=== PATIENT | female | born 1980 | race Caucasian/White ===

== ENCOUNTER 2016-12-17 16:32 | Emergency (ER) | payer MEDICARE ==
--- NOTE | ~2016-12-17 | EKG ---
PATIENT: MILO PEREYRA UNIT #: [id number] Ventricular Rate: 104 BPM Atrial Rate: 104 BPM P-R Interval: 150 ms QRS Duration: 82 ms Q-T Interval: 358 ms QTC Calculation(Bezet): 470 ms P [place]: 42 degrees Calculated R [place]: 13 degrees Calculated T [place]: 38 degrees Diagnosis Line: Sinus tachycardia Diagnosis Line: Otherwise normal ECG Diagnosis Line: No previous ECGs available Diagnosis Line: Confirmed by IRVING LAMBERT MD ([id number]) on 12/18/2016 Diagnosis Line: 8:05:17 PM INTERPRETING MD: PETRA CHRISTIE
[~2016-12-17 16:32] MED LIST: ACYCLOVIR PO; ALPRAZOLAM PO; BACITRACIN30 GM TOP; CARAFATE1 G; DICLOFENAC PO; EC-NAPROSYN500 MG PO; ERY-TAB500 MG PO; FLEXERIL PO; FLEXERIL10 MG PO; HYDROCODONE-APA1 T58 PO; IBUPROFEN PO; KETOPROFEN PO; KLONOPIN PO; KLONOPIN1 MG PO; LORTAB 10-5001 EACH PO; MOBIC PO; MOUTHWASH180 ML PO; NABUMETONE PO; NAPROSYN500 MG PO; OMEPRAZOLE20 M2 PO; PHENERGAN PO; PREDNISONE PO; PREVACID PO; PRILOSEC PO; SEROQUEL XR300 MG PO; SEROQUEL XR50 MG PO; SEROQUEL300 M1 PO; SEROQUEL50 M1 PO; SEROQUEL50 MG PO; SINGULAIR PO; SYMBICORT 160/4.6 GM; TOPAMAX PO; TRAZODONE PO; ULTRAM PO; VICODIN 5/500 T1 TAB PO; ZANAFLEX PO; ZANAFLEX4 M1 PO; ZANTAC PO; ZITHROMAX PO; ZOVIRAX CREAM TOP; ZYRTEC PO
[2016-12-17] MEDS ORDERED: ANTIDEPRESSANT (16:42)
[2016-12-17 17:15] LABS: BASOPHIL% 0.4 % (0-2.5); EOSINOPHIL% 0.1 % (0.0-7.0); HEMOGLOBIN 12.7 gm/dL (12.0-16.0); LYMPHOCYTE# 1.4 X10e3 (1.0-3.5); LYMPHOCYTE% 11.5 % (17.0-45.0); MEAN CELL VOLUME 91.2 FL (83-96); MEAN CORPUSCULAR HEMOGLOBIN 30.4 PG (28-34); MEAN CORPUSCULAR HGB CONC 33.4 g/dL (30-36); MEAN PLATELET VOLUME 7.8 FL (6.5-11.5); MONOCYTE# 0.5 X10e3 (0-1.0); MONOCYTE% 4.4 % (3.0-12.0); NEUTROPHIL# 10.1 X10e3 (1.5-7.1); NEUTROPHIL% 83.6 % (40-75); PLATELET COUNT 279 X10e3 (140-420); RED BLOOD COUNT 4.17 X10e (3.90-5.30); RED CELL DISTRIBUTION WIDTH 12.9 % (11.0-15.5); WHITE BLOOD COUNT 12.1 X10e3 (4.0-10.5)
[2016-12-17 17:17] LABS: DIFF IND NO
[2016-12-17 17:37] LABS: ALBUMIN SERUM 4.2 g/dL (3.5-5.0); ALKALINE PHOSPHATASE 85 U/L (32-92); ALT (SGPT) 18 U/L (10-40); AST (SGOT) 21 U/L (10-42); BILIRUBIN, DIRECT 0.1 mg/dL (0.0-0.2); BILIRUBIN,INDIRECT 0.2 mg/dL (0.0-0.9); BILIRUBIN,TOTAL 0.3 mg/dL (0.2-2.0); BLOOD UREA NITROGEN 13 mg/dL (9-23); BUN/CREATININE RATIO 14.44; CALCIUM SERUM 9.4 mg/dL (8.4-10.2); CARBON DIOXIDE 18 mmol/L (22-31); CHLORIDE 108 mmol/L (100-111); CREATININE SERUM 0.9 mg/dL (0.6-1.4); GLOM FILT RATE Estimated 82.9 mL/min (>60); GLUCOSE FASTING 177 mg/dL (70-110); POTASSIUM 3.1 mmol/L (3.5-5.1); PROTEIN TOTAL SERUM 7.6 g/dL (6.0-8.3); SALICYLATE <4.0 mg/dL; SODIUM 136 mmol/L (135-145)
[2016-12-17 17:40] LABS: ACETAMINOPHEN <10 ug/mL; ALCOHOL BLOOD <5 mg/dL (0)
[2016-12-17 17:49] LABS: URINE SOURCE CLEAN CATCH
[2016-12-17 17:53] LABS: URINE APPEARANCE CLEAR; URINE BILIRUBIN NEG (NEG); URINE BLOOD 1+ (NEG); URINE COLOR YELLOW; URINE GLUCOSE NEG (NORM); URINE KETONE NEG (NEG); URINE LEUKOCYTE ESTERASE NEG (NEG); URINE NITRATE NEG (NEG); URINE PROTEIN TRACE (NEG); URINE UROBILINOGEN 0.2 MG/DL (NORM)
[2016-12-17 17:57] LABS: MICRO INDICATED? YES
[2016-12-17 17:59] LABS: CULTURE INDICATED? NO; URINE BACTERIA NEG (NEG); URINE RBC 0-2 /[HPF] (0-2); URINE WBC 0-2 /[HPF] (0-5)
[2016-12-17 18:03] LABS: AMPHETAMINE NEG (NEG); BARBITURATES NEG (NEG); BENZODIAZEPINES NEG (NEG); COCAINE POS (NEG); MARIJUANA POS (NEG); OPIATES NEG (NEG); TRICYCLIC ANTIDEPRESSANTS NEG (NEG); U METHADONE NEG (NEG)
== END 2016-12-17 19:07 | disposition home or self-care (01) ==
LOC: SED 16:32
PROVIDERS: Student in an Organized Health Care Education/Training Program
DX: R00.2 Palpitations (principal); F14.129 Cocaine abuse with intoxication, unspecified; F15.129 Other stimulant abuse with intoxication, unspecified; F12.129 Cannabis abuse with intoxication, unspecified; F29 Unspecified psychosis not due to a substance or known physiological condition; F41.9 Anxiety disorder, unspecified; F32.9 Major depressive disorder, single episode, unspecified; F17.200 Nicotine dependence, unspecified, uncomplicated; Z88.0 Allergy status to penicillin; Z79.899 Other long term (current) drug therapy
CPT/HCPCS: 36415; 80048; 80076; 80307; 81003; 84703; 85025; 93005; 96361; 96374; 96375; 99284; G0480; J1630; J2060

== ENCOUNTER 2017-01-03 13:56 | Emergency (ER) | payer MEDICARE ==
--- NOTE | ~2017-01-03 | CR63 ---
[facility]. [facility] A Service of [facility] & [facility] RADIOLOGY TEXT RESULTS PATIENT: MILO PEREYRA LOCATION: SED : 82 UNIT #: [id number] AGE: [address]: RICHIE RODRIGUEZ SEX: F ORDER DR: [id number] [place] [id number] MR#: [id number] Acc #: [id number] NAME: MILO PEREYRA : 1980 SEX: F STUDY DATE/TIME: 01/03/2017 14:32 UNIT: SED ROOM: STUDY DESCRIPTION: CR Chest 2 View Attending Physician: Richie Rodriguez Ordering Physician: Richie Rodriguez Primary Care Physician: Azul Christopher M.D. MEDICAL IMAGING REPORT This report is preliminary unless electronic signature is present. EXAM Chest PA and lateral, 01/03/2017 HISTORY Cough for 8 days. Smoking history. FINDINGS PA and lateral examination of the chest upright shows a good expansion of the parenchyma with a normal distribution of the pulmonary vascularity. There is no indication of congestion, effusion, infiltrate, tumor, or nodular density. The pleural reflections and diaphragmatic contours are normal. The cardiac silhouette and mediastinal anatomy is within normal limits. IMPRESSION Normal chest. Dictated by... Dev Washington M.D. THIS IS AN ELECTRONICALLY VERIFIED REPORT Dev Washington M.D. at 01/04/2017 2:09 PM ZACH/kaleigh TD: 01/03/2017 16:28 JOB #: [id number] MEDICAL IMAGING REPORT Page 1 of 1
[~2017-01-03 13:56] MED LIST changes: +ANTIDEPRESSANT
[2017-01-03] MEDS ORDERED: TOPAMAX (14:17)
[2017-01-03] MEDS ORDERED: CELEXA (14:18)
== END 2017-01-03 15:37 | disposition home or self-care (01) ==
LOC: SED 13:56
DX: J20.9 Acute bronchitis, unspecified (principal); F17.200 Nicotine dependence, unspecified, uncomplicated; Z88.0 Allergy status to penicillin
CPT/HCPCS: 71020; 99283

== ENCOUNTER 2017-04-16 11:04 | Emergency (ER) | payer MEDICARE ==
[~2017-04-16] VITALS: Ht 149.9 cm; Wt 79.8 kg
[~2017-04-16 11:04] MED LIST changes: +CELEXA; +TOPAMAX
== END 2017-04-16 12:37 | disposition home or self-care (01) ==
LOC: CED 11:04 → CFTX 11:04
DX: S39.012A Strain of muscle, fascia and tendon of lower back, initial encounter (principal); F41.9 Anxiety disorder, unspecified; F17.200 Nicotine dependence, unspecified, uncomplicated; Z88.0 Allergy status to penicillin; X50.9XXA Other and unspecified overexertion or strenuous movements or postures, initial encounter; Y92.69 Other specified industrial and construction area as the place of occurrence of the external cause; Y93.89 Activity, other specified; Y99.0 Civilian activity done for income or pay
CPT/HCPCS: 99283